=== PATIENT | female | born 1940 | race Caucasian/White ===

== ENCOUNTER 2022-04-10 10:49 | Outpatient (CLI) | payer MEDICARE | END 2022-04-10 10:50 | disposition home or self-care (01) | LOC: CSHMAMMO 10:49 | PROVIDERS: ATTEND Internal Medicine | DX: Z12.31 Encounter for screening mammogram for malignant neoplasm of breast (principal) | CPT/HCPCS: 77063; 77067 ==

== ENCOUNTER 2023-04-11 10:23 | Outpatient (CLI) | payer MEDICARE, BC | END 2023-04-11 10:24 | disposition home or self-care (01) | LOC: CSHMAMMO 10:23 | PROVIDERS: ATTEND Internal Medicine | DX: Z12.31 Encounter for screening mammogram for malignant neoplasm of breast (principal) | CPT/HCPCS: 77063; 77067 ==